=== PATIENT | male | born 1965 | race Caucasian/White ===

== ENCOUNTER 2020-07-14 08:31 | Emergency (ER) | payer OTHER ==
[~2020-07-14] VITALS: Ht 190.5 cm; Wt 97.5 kg
== END 2020-07-14 15:47 | disposition home or self-care (01) ==
LOC: ER 08:31
DX: G40.89 Other seizures (principal); R03.0 Elevated blood-pressure reading, without diagnosis of hypertension; I48.91 Unspecified atrial fibrillation